=== PATIENT | female | born 1970 | race Two or more races ===

== ENCOUNTER 2020-04-27 15:18 | Outpatient (CLI) | payer OTHER | END 2020-04-27 15:25 | disposition home or self-care (01) | LOC: MAMO-SONO 15:18 | DX: Z12.31 Encounter for screening mammogram for malignant neoplasm of breast (principal) ==

== ENCOUNTER 2020-06-23 15:21 | Outpatient (CLI) | payer OTHER | END 2020-06-23 15:29 | disposition home or self-care (01) | LOC: SONOGRAMA 15:21 | PROVIDERS: ATTEND Internal Medicine | DX: R92.2 Inconclusive mammogram (principal) ==

== ENCOUNTER → 2021-01-26 10:57 | Outpatient (CLI) | payer OTHER | END | disposition home or self-care (01) | LOC: LAB 10:57 | PROVIDERS: ATTEND Obstetrics & Gynecology | DX: N92.6 Irregular menstruation, unspecified (principal) ==

== ENCOUNTER 2021-06-22 12:29 | Outpatient (CLI) | payer OTHER | END 2021-06-22 12:35 | disposition home or self-care (01) | LOC: RAD 12:29 | DX: M75.32 Calcific tendinitis of left shoulder (principal); M72.2 Plantar fascial fibromatosis ==

== ENCOUNTER 2021-11-16 09:12 | Outpatient (CLI) | payer OTHER | END 2021-11-16 18:50 | disposition home or self-care (01) | LOC: LAB 09:12 | PROVIDERS: ATTEND Acupuncturist | DX: N39.0 Urinary tract infection, site not specified (principal); E11.9 Type 2 diabetes mellitus without complications; I11.9 Hypertensive heart disease without heart failure; E03.9 Hypothyroidism, unspecified; E55.9 Vitamin D deficiency, unspecified; R19.5 Other fecal abnormalities; M54.50 Low back pain, unspecified ==

== ENCOUNTER 2021-11-16 10:17 | Outpatient (CLI) | payer OTHER | END 2021-11-16 10:21 | disposition home or self-care (01) | LOC: MRI 10:17 | PROVIDERS: ATTEND Podiatrist | DX: M71.571 Other bursitis, not elsewhere classified, right ankle and foot (principal); M77.31 Calcaneal spur, right foot | CPT/HCPCS: 73718 ==

== ENCOUNTER 2021-11-17 15:57 | Outpatient (CLI) | payer OTHER | END 2021-11-17 16:00 | disposition home or self-care (01) | LOC: LAB 15:57 | DX: M54.50 Low back pain, unspecified (principal); R19.5 Other fecal abnormalities ==

== ENCOUNTER 2022-05-29 14:51 | Outpatient (CLI) | payer OTHER | END 2022-05-29 15:02 | disposition home or self-care (01) | LOC: MAMO-SONO 14:51 | PROVIDERS: ATTEND Obstetrics & Gynecology | DX: N64.4 Mastodynia (principal) ==

== ENCOUNTER 2024-04-06 09:48 | Outpatient (CLI) | payer OTHER ==
[2024-04-06 11:28] LABS: HEMATOCRIT 37.4 % (36.0-45.00); HEMOGLOBIN 12.9 g/dL (12.0-15.00); MEAN CELL VOLUME 86.7 fL (80.00-100.00); MEAN CORPUSCULAR HGB CONC 34.6 g/dl (32.0-36.0); PLATELET COUNT 188 K/uL (150-450); RED BLOOD COUNT 4.31 M/uL (4.00-6.00); RED CELL DISTRIBUTION WIDTH 14.1 % (11.5-14.5)
[2024-04-06 11:45] LABS: PH,URINE 6.5 (5.0-8.0); URINE APPEARANCE Clear; URINE BILIRRUBIN Negative (NEGATIVE); URINE BLOOD Negative; URINE COLOR Yellow; URINE GLUCOSE Negative (NEGATIVE); URINE KETONE Negative (NEGATIVE); URINE LEUKOCYTE Trace; URINE NITRATE Negative; URINE PROTEIN Negative (NEGATIVE); URINE UROBILINOGEN 0.2 E.U./dl
[2024-04-06 11:49] LABS: URINE EPITHELIAL CELLS 30.9 uL (0.0-38.8); URINE RBC 13.7 uL (0.0-20.8); URINE WBC 16.8 uL (0.0-23.2)
[2024-04-06 12:48] LABS: ALBUMIN 3.7 gm/dL (3.4-5.0); BILIRUBIN TOTAL 0.44 mg/dL (0.3-1.2); CALCIUM 8.9 mg/dL (8.5-10.1); CHOL HDL RATIO 3.3 (0-5.0); CREATININE SERUM 0.7 mg/dL (0.55-1.02); GFR 87.87; GLOBULINA 3.8 G/DL (2.4-3.5); POTASSIUM 4.53 mEq/L (3.5-5.1); TOTAL PROTEIN 7.5 gm/dL (6.4-8.2)
[2024-04-06 12:59] LABS: TSH 6.69 uIU/mL (0.358-3.74)
== END 2024-04-06 09:53 | disposition home or self-care (01) ==
LOC: LAB 09:48
PROVIDERS: ATTEND Acupuncturist
DX: N39.0 Urinary tract infection, site not specified (principal); E55.9 Vitamin D deficiency, unspecified; E11.9 Type 2 diabetes mellitus without complications; E78.5 Hyperlipidemia, unspecified; E03.9 Hypothyroidism, unspecified

== ENCOUNTER 2024-04-06 10:55 | Outpatient (CLI) | payer OTHER | END 2024-04-06 11:01 | disposition home or self-care (01) | LOC: MAMO-SONO 10:55 | PROVIDERS: ATTEND Acupuncturist | DX: E03.9 Hypothyroidism, unspecified (principal); I11.9 Hypertensive heart disease without heart failure; N63.0 Unspecified lump in unspecified breast ==

== ENCOUNTER 2024-04-10 15:23 | Outpatient (CLI) | payer OTHER ==
[2024-04-10 16:39] LABS: ob NEGATIVE (NEGATIVE)
== END 2024-04-10 15:37 | disposition home or self-care (01) ==
LOC: LAB 15:23
PROVIDERS: ATTEND Acupuncturist
DX: N39.0 Urinary tract infection, site not specified (principal); E11.9 Type 2 diabetes mellitus without complications; E78.5 Hyperlipidemia, unspecified; E03.9 Hypothyroidism, unspecified; E55.9 Vitamin D deficiency, unspecified

== ENCOUNTER 2024-06-29 10:57 | Outpatient (CLI) | payer OTHER ==
[2024-06-29 12:39] LABS: FREE TRIODOTIRONINE 2.87 pg/ml (2.18-3.98); T4 FREE 0.84 NG/ML (0.76-1.46)
== END 2024-06-29 11:03 | disposition home or self-care (01) ==
LOC: LAB 10:57
PROVIDERS: ATTEND Obstetrics & Gynecology
DX: E03.8 Other specified hypothyroidism (principal)

== ENCOUNTER → 2024-12-28 10:02 | Outpatient (CLI) | payer OTHER ==
[2024-12-28 13:06] LABS: ALBUMIN 3.8 gm/dL (3.4-5.0); BILIRUBIN TOTAL 0.36 mg/dL (0.3-1.2); CALCIUM 8.5 mg/dL (8.5-10.1); CHOL HDL RATIO 3.3 (0-5.0); CREATININE SERUM 0.68 mg/dL (0.55-1.02); GFR 90.86; GLOBULINA 3.6 G/DL (2.4-3.5); POTASSIUM 4.14 mEq/L (3.5-5.1); T4 TOTAL 8.17 UG/DL (4.8-13.9); TOTAL PROTEIN 7.4 gm/dL (6.4-8.2)
[2024-12-28 13:27] LABS: TSH 5.82 uIU/mL (0.358-3.74)
== END | disposition home or self-care (01) ==
LOC: LAB 10:02
PROVIDERS: ATTEND Acupuncturist
DX: E03.9 Hypothyroidism, unspecified (principal); E78.5 Hyperlipidemia, unspecified

== ENCOUNTER 2024-12-28 10:41 | Outpatient (CLI) | payer OTHER | END 2024-12-28 10:44 | disposition home or self-care (01) | LOC: RAD 10:41 | PROVIDERS: ATTEND Acupuncturist | DX: M25.561 Pain in right knee (principal) ==

== ENCOUNTER 2025-06-01 11:04 | Outpatient (CLI) | payer OTHER | END 2025-06-01 11:05 | disposition home or self-care (01) | LOC: MAMO-SONO 11:04 | PROVIDERS: ATTEND Obstetrics & Gynecology | DX: N60.21 Fibroadenosis of right breast (principal); N60.22 Fibroadenosis of left breast; Z12.31 Encounter for screening mammogram for malignant neoplasm of breast ==

== ENCOUNTER 2025-06-01 12:46 | Outpatient (CLI) | payer OTHER | END 2025-06-01 12:53 | disposition home or self-care (01) | LOC: LAB 12:46 | PROVIDERS: ATTEND Obstetrics & Gynecology | DX: N95.1 Menopausal and female climacteric states (principal); E16.1 Other hypoglycemia; E27.8 Other specified disorders of adrenal gland; R79.89 Other specified abnormal findings of blood chemistry; R79.0 Abnormal level of blood mineral ==

== ENCOUNTER → 2025-06-17 11:23 | Outpatient (CLI) | payer OTHER | END | disposition home or self-care (01) | LOC: NUCLEAR 11:23 | PROVIDERS: ATTEND Obstetrics & Gynecology | DX: M81.0 Age-related osteoporosis without current pathological fracture (principal) ==